=== PATIENT | female | born 1980 | race Caucasian/White ===

== ENCOUNTER 2019-07-14 07:58 | Observation (INO) | payer OTHER ==
--- NOTE | 2019-07-14 09:18 | ED ---
General Adult HPI - General Chief complaint: Chest Pain Stated complaint: chest pain/SOB Time Seen by Provider: 07/14/19 08:12 Source: patient Mode of arrival: ambulatory Limitations: no limitations - History of Present Illness Initial comments: Dictation was produced using [employer] dictation software. please excuse any grammatical, word or spelling errors. Chief Complaint: Patient is a 38-year-old female presents with chief complaint o f chest discomfort History of Present Illness: 38-year-old female she has past medical history dysl ipidemia and hypertension. She states that she had some chest sensation that radiated up to her bilateral jaws. Patient has a strong family history of cardiac disease. She reports that her father of a heart attack and mother was diagnosed with congestive heart failure. Patient states she's been having intermittent episodes on her way to work. He patient denies any previous cardiac history. She denies any shortness of breath. Patient denies any radiation of symptoms to her shoulders, back or extremity. She does feel some slight associated nausea. She refuses to describe the sensation as a pain started describe it as a strange substernal sensation. Denies any lower extremity symptoms. No numbness or paresthesias to the arms or legs. The ROS documented in this emergency department record has been reviewed and confirmed by me. Those systems with pertinent positive or negative responses have been documented in the HPI. All other systems are other negative and/or noncontributory. PHYSICAL EXAM: General Impression: Alert and oriented x3, not in acute distress HEENT: Normocephalic atraumatic, extra-ocular movements intact, pupils equal and reactive to light bilaterally, mucous membranes moist. Cardiovascular: Heart regular rate and rhythm, S1&S2 audible, no murmurs, rubs or gallops Chest: Lungs clear to auscultation bilaterally, no rhonchi, no wheeze, no rales Abdomen: Bowel sounds present, abdomen soft, non-tender, non-distended, no organomegaly Musculoskeletal: Pulses present and equal in all extremities, no peripheral edema Motor: no focal deficits noted Neurological: CN II-XII grossly intact, no focal motor or sensory deficits noted Skin: Intact with no visualized rashes Psych: Normal affect and mood ED course: 38 y Old female chief complaint of chest discomfort. Vital signs upon arrival are within acceptable limits. Local presentation consistent with atypical chest pain typical features. EKG however shows T-wave inversions that are diffuse. Patient denies any shortness of breath. No concern for pulmonary embolus at this time given she's not tachycardic or hypoxic or complaining of any lower extremity symptoms.Chest x-ray is nonacute. Patient reevaluated at bedside found to be stable medical condition. She denies any chest symptoms at this time. Given the abnormal EKG and strong family history discussed with patient that I would recommend inpatient observation admission for serial troponins and cardiology consultation. Patient is agreeable understandable. She was given aspirin. Pending discussion with [facility] hospitalist group. EKG interpretation: Ventricular rate 81, normal sinus rhythm,. Interval 170, QRS 86, QTC 425. Diffuse mild ST depressions in precordial leads and lead 3. No ST segment elevations. - Related Data Home Medications Medication Instructions Recorded Confirmed Albuterol Inhaler [Ventolin Hfa 1 - 2 puff INHALATION RT-Q6H PRN 07/14/1907/14 Inhaler] Biotin 10,000 mcg PO DAILY 07/14/19 07/14/19 Calcium Carbonate [Calcium] 600 mg PO DAILY 07/14/19 07/14/19 Cetirizine HCl [Zyrtec] 10 mg PO DAILY 07/14/19 07/14/19 Cholecalciferol [Vitamin D3 (25 1,000 unit PO DAILY 07/14/19 07/14/19 Mcg = 1000 Iu)] Gemfibrozil [Lopid] 600 mg PO AC-BID 07/14/19 07/14/19 Metoprolol Succinate (ER) [Toprol 100 mg PO DAILY 07/14/19 07/14/19 Xl] Omeprazole Magnesium [PriLOSEC OTC] 20 mg PO DAILY 07/14/19 07/14/19 Jpb-Zvxh-Mvlzd Acid 2 cap PO DAILY 07/14/19 07/14/19 [-U Capsule (formulary)] Triamterene-Hctz 37.5-25Mg 1 cap PO DAILY 07/14/19 07/14/19 [Dyazide 37.5-25 Capsule] Valerian Root 450 mg PO 5XD PRN 07/14/19 07/14/19 buPROPion XL [Wellbutrin Xl] 150 mg PO DAILY 07/14/19 07/14/19 Allergies Allergy/AdvReac Type Severity Reaction Status Date / Time amoxicillin AdvReac Nausea & Verified 07/14/19 10:13 Vomiting ciprofloxacin [From Cipro] AdvReac Nausea & Verified 07/14/19 10:13 Vomiting erythromycin base AdvReac Nausea & Verified 07/14/19 10:13 Vomiting Latex, Natural Rubber AdvReac Rapid Verified 07/14/19 10:13 Heart Rate lisinopril AdvReac Confusion Verified 07/14/19 10:13 Penicillins AdvReac Nausea & Verified 07/14/19 10:13 Vomiting Review of Systems ROS Statement: Those systems with pertinent positive or pertinent negative responses have been documented in the HPI. ROS Other: All systems not noted in ROS Statement are negative. Past Medical History Past Medical History: Hyperlipidemia, Hypertension Additional Past Medical History / Comment(s): anxiety History of Any Multi-Drug Resistant Organisms: None Reported Past Surgical History: Orthopedic Surgery Additional Past Surgical History / Comment(s): uterine ablation d & c plantar fascia surg Past Psychological History: Anxiety Smoking Status: Never smoker Past Alcohol Use History: Occasional Past Drug Use History: None Reported General Exam Limitations: no limitations Course Vital Signs 07/14/19 07/14/19 07/14/19 08:01 08:20 09:05 Temperature 98.2 F Pulse Rate 83 76 Pulse Rate [ 82 Radio Equipment Repairer ] Respiratory 16 16 Rate Blood Pressure 145/84 129/72 O2 Sat by Pulse 97 97 Oximetry 07/14/19 07/14/19 12:14 12:18 Temperature Pulse Rate 73 77 Pulse Rate [ Radio Equipment Repairer ] Respiratory 18 18 Rate Blood Pressure 129/81 142/92 O2 Sat by Pulse 96 96 Oximetry Medical Decision Making - Lab Data Result diagrams: 07/14/19 10:06 07/14/19 10:06 Lab Results 07/14/19 07/14/19 07/14/19 Range/Units 08:24 10:06 10:06 WBC 8.9 (3.8-10.6) k/uL RBC 5.45 H (3.80-5.40) m/uL Hgb 13.7 (11.4-16.0) gm/dL Hct 42.3 (34.0-46.0) % MCV 77.6 L (80.0-100.0) fL MCH 25.1 (25.0-35.0) pg MCHC 32.3 (31.0-37.0) g/dL RDW 14.4 (11.5-15.5) % Plt Count 384 (150-450) k/uL Neutrophils % 65 % Lymphocytes % 28 % Monocytes % 4 % Eosinophils % 1 % Basophils % 0 % Neutrophils # 5.8 (1.3-7.7) k/uL Lymphocytes # 2.5 (1.0-4.8) k/uL Monocytes # 0.4 (0-1.0) k/uL Eosinophils # 0.1 (0-0.7) k/uL Basophils # 0.0 (0-0.2) k/uL PT (9.0-12.0) sec INR (<1.2) APTT (22.0-30.0) sec Sodium 137 (137-145) mmol/L Potassium 3.9 (3.5-5.1) mmol/L Chloride 102 (98-107) mmol/L Carbon Dioxide 23 (22-30) mmol/L Anion Gap 12 mmol/L BUN 13 (7-17) mg/dL Creatinine 0.64 (0.52-1.04) mg/dL Est GFR (CKD-EPI)AfAm >90 (>60 ml/min/1.73 sqM) Est GFR (CKD-EPI)NonAf >90 (>60 ml/min/1.73 sqM) Glucose 79 (74-99) mg/dL Calcium 9.5 (8.4-10.2) mg/dL Magnesium 2.0 (1.6-2.3) mg/dL Total Bilirubin 0.3 (0.2-1.3) mg/dL AST 30 (14-36) U/L ALT 19 (4-34) U/L Alkaline Phosphatase 93 (38-126) U/L Troponin I (0.000-0.034) ng/mL Total Protein 7.1 (6.3-8.2) g/dL Albumin 3.9 (3.5-5.0) g/dL Urine HCG, Qual Not Detected (Not Detectd) 07/14/19 07/14/19 Range/Units 10:06 10:06 WBC (3.8-10.6) k/uL RBC (3.80-5.40) m/uL Hgb (11.4-16.0) gm/dL Hct (34.0-46.0) % MCV (80.0-100.0) fL MCH (25.0-35.0) pg MCHC (31.0-37.0) g/dL RDW (11.5-15.5) % Plt Count (150-450) k/uL Neutrophils % % Lymphocytes % % Monocytes % % Eosinophils % % Basophils % % Neutrophils # (1.3-7.7) k/uL Lymphocytes # (1.0-4.8) k/uL Monocytes # (0-1.0) k/uL Eosinophils # (0-0.7) k/uL Basophils # (0-0.2) k/uL PT 9.6 (9.0-12.0) sec INR 0.9 (<1.2) APTT 24.7 (22.0-30.0) sec Sodium (137-145) mmol/L Potassium (3.5-5.1) mmol/L Chloride (98-107) mmol/L Carbon Dioxide (22-30) mmol/L Anion Gap mmol/L BUN (7-17) mg/dL Creatinine (0.52-1.04) mg/dL Est GFR (CKD-EPI)AfAm (>60 ml/min/1.73 sqM) Est GFR (CKD-EPI)NonAf (>60 ml/min/1.73 sqM) Glucose (74-99) mg/dL Calcium (8.4-10.2) mg/dL Magnesium (1.6-2.3) mg/dL Total Bilirubin (0.2-1.3) mg/dL AST (14-36) U/L ALT (4-34) U/L Alkaline Phosphatase (38-126) U/L Troponin I <0.012 (0.000-0.034) ng/mL Total Protein (6.3-8.2) g/dL Albumin (3.5-5.0) g/dL Urine HCG, Qual (Not Detectd) Disposition Clinical Impression: Chest pain Disposition: ADMITTED IP TO THIS [facility] Condition: Fair Referrals: Lamberto Peterson MD [Primary Care Provider] - 1-2 days Decision Time: 12:25
--- NOTE | 2019-07-14 09:54 | XR ---
EXAMINATION TYPE: XR chest 2V DATE OF EXAM: 07/14/2019 COMPARISON: NONE HISTORY: Chest pressure and shortness of breath TECHNIQUE: Frontal and lateral views of the chest are obtained. FINDINGS: There is no focal air space opacity, pleural effusion, or pneumothorax seen. Central pulmo nary vascular prominence is seen. The cardiac silhouette size is upper limits of normal. The osseou s structures are intact. Mild multilevel degenerative change of the spine. IMPRESSION: Central pulmonary vascular prominence could relate to early fluid overload. Cardiomedias tinal silhouette is upper limits normal size.
[2019-07-14 10:19] LABS: Basophils % (A) 0 %; Eosinophils # (A) 0.1 k/uL (0-0.7); Eosinophils % (A) 1 %; HCT 42.3 % (34.0-46.0); HGB 13.7 gm/dL (11.4-16.0); Lymphocytes # (A) 2.5 k/uL (1.0-4.8); Lymphocytes % (A) 28 %; MCH 25.1 pg (25.0-35.0); MCHC 32.3 g/dL (31.0-37.0); MCV 77.6 fL (80.0-100.0); Mean Platelet Volume 6.8; Monocytes # (A) 0.4 k/uL (0-1.0); Monocytes % (A) 4 %; Neutrophils # (A) 5.8 k/uL (1.3-7.7); Neutrophils % (A) 65 %; Platelet Count 384 k/uL (150-450); RBC 5.45 m/uL (3.80-5.40); RDW 14.4 % (11.5-15.5); WBC 8.9 k/uL (3.8-10.6)
[2019-07-14 10:36] LABS: INR 0.9 (<1.2); Partial Thromboplastin Time 24.7 sec (22.0-30.0); Prothrombin Time 9.6 sec (9.0-12.0)
[2019-07-14] MEDS ORDERED: ASPIRIN 81 MG PO STA (10:37)
[2019-07-14 10:38] LABS: ALT 19 U/L (4-34); AST 30 U/L (14-36); African American GFR (CKD) >90 (>60 ml/min/1.73 sqM); Albumin 3.9 g/dL (3.5-5.0); Alkaline Phosphatase 93 U/L (38-126); Anion Gap 12 mmol/L; Blood Urea Nitrogen 13 mg/dL (7-17); Calcium 9.5 mg/dL (8.4-10.2); Carbon Dioxide 23 mmol/L (22-30); Chloride 102 mmol/L (98-107); Glucose 79 mg/dL (74-99); Non-African American GFR(CKD) >90 (>60 ml/min/1.73 sqM); Potassium 3.9 mmol/L (3.5-5.1); Sodium 137 mmol/L (137-145); Total Bilirubin 0.3 mg/dL (0.2-1.3); Total Protein 7.1 g/dL (6.3-8.2)
[2019-07-14] MEDS ORDERED: NITROGLYCERIN SL TABS 0.4 MG TAB SUBLINGUAL PRN (12:22)
--- NOTE | 2019-07-14 13:11 | P.HPIM ---
History of Present Illness this is a pleasant 38 years old female with past medical history of hypertension, hyperlipidemia, anxiety presents because of chest pain or discomfort. Patient was driving to work today when she felt indigestion, the later on started having fatigue, felt drowsy with lightheadedness, failed some pain of the jaw and the some chest pain or discomfort that has disappeared now, with no associated dyspnea or nausea vomiting. She denies smoking alcohol or illicit tracts Her mother from heart failure and father from heart attack but she is not sure what H Ly problem started vitals stable, labs including CBC, BMP, liver enzymes, and heart are unremarkable. Chest x-ray: Central pulmonary vascular prominence could be r elated to fluid overload. Cardiomediastinal silhouette the is upper limits normal size by radiologist.EKG: Normal sinus rhythm at 81 bpm, no significant ST-T changes, T-wave inversion in V1-V3, QTC 425 Review of Systems CONSTITUTIONAL: No fever, no malaise, no fatigue. HEENT: No recent visual problems or hearing problems. Denied any sore throat. CARDIOVASCULAR: No orthopnea, PND, no palpitations, no syncope. PULMONARY: No shortness of breath, no cough, no hemoptysis. GASTROINTESTINAL: No diarrhea, no nausea, no vomiting, no abdominal pain. Normoactive bowel sounds. NEUROLOGICAL: No headaches, no weakness, no numbness. HEMATOLOGICAL: Denies any bleeding or petechiae. GENITOURINARY: Denies any burning micturition, frequency, or urgency. MUSCULOSKELETAL/RHEUMATOLOGICAL: Denies any joint pain, swelling, or any muscle pain. ENDOCRINE: Denies any polyuria or polydipsia. Past Medical History Past Medical History: Hyperlipidemia, Hypertension Additional Past Medical History / Comment(s): anxiety History of Any Multi-Drug Resistant Organisms: None Reported Past Surgical History: Orthopedic Surgery Additional Past Surgical History / Comment(s): uterine ablation d & c plantar fascia surg Past Psychological History: Anxiety Smoking Status: Never smoker Past Alcohol Use History: Occasional Past Drug Use History: None Reported Medications and Allergies Home Medications Medication Instructions Recorded Confirmed Type Albuterol Inhaler [Ventolin Hfa 1 - 2 puff INHALATION RT-Q6H PRN 07/14/19 07/14/19 History Inhaler] Biotin 10,000 mcg PO DAILY 07/14/19 07/14/19 History Calcium Carbonate [Calcium] 600 mg PO DAILY 07/14/19 07/14/19 History Cetirizine HCl [Zyrtec] 10 mg PO DAILY 07/14/19 07/14/19 History Cholecalciferol [Vitamin D3 (25 1,000 unit PO DAILY 07/14/19 07/14/19 History Mcg = 1000 Iu)] Gemfibrozil [Lopid] 600 mg PO AC-BID 07/14/19 07/14/19 History Metoprolol Succinate (ER) [Toprol 100 mg PO DAILY 07/14/19 07/14/19 History Xl] Omeprazole Magnesium [PriLOSEC OTC] 20 mg PO DAILY 07/14/19 07/14/19 History Yvo-Jtli-Ebeyl Acid 2 cap PO DAILY 07/14/19 07/14/19 History [-U Capsule (formulary)] Triamterene-Hctz 37.5-25Mg 1 cap PO DAILY 07/14/19 07/14/19 History [Dyazide 37.5-25 Capsule] Valerian Root 450 mg PO 5XD PRN 07/14/19 07/14/19 History buPROPion XL [Wellbutrin Xl] 150 mg PO DAILY 07/14/19 07/14/19 History Allergies Allergy/AdvReac Type Severity Reaction Status Date / Time amoxicillin AdvReac Nausea & Verified 07/14/19 10:13 Vomiting ciprofloxacin [From Cipro] AdvReac Nausea & Verified 07/14/19 10:13 Vomiting erythromycin base AdvReac Nausea & Verified 07/14/19 10:13 Vomiting Latex, Natural Rubber AdvReac Rapid Verified 07/14/19 10:13 Heart Rate lisinopril AdvReac Confusion Verified 07/14/19 10:13 Penicillins AdvReac Nausea & Verified 07/14/19 10:13 Vomiting Physical Exam Vitals: Vital Signs Temp Pulse Pulse Resp BP Pulse Ox 07/14/19 12:18 77 18 142/92 96 07/14/19 12:14 73 18 129/81 96 07/14/19 09:05 76 16 129/72 97 07/14/19 08:20 82 07/14/19 08:01 98.2 F 83 16 145/84 97 Intake and Output 07/13/19 07/14/19 07/14/19 22:59 06:59 14:59 Other: Weight 135.942 kg GENERAL: The patient is alert and oriented x3, not in any acute distress. Well developed, well nourished. HEENT: Pupils are round and equally reacting to light. EOMI. No scleral icterus. No conjunctival pallor. Normocephalic, atraumatic. No pharyngeal erythema. No thyromegaly. CARDIOVASCULAR: S1 and S2 present. No murmurs, rubs, or gallops. PULMONARY: Chest is clear to auscultation, no wheezing or crackles. ABDOMEN: Soft, nontender, nondistended, normoactive bowel sounds. No palpable organomegaly. MUSCULOSKELETAL: No joint swelling or deformity. EXTREMITIES: No cyanosis, clubbing, or pedal edema. NEUROLOGICAL: Gross neurological examination did not reveal any focal deficits. SKIN: No rashes. No petechiae Results CBC & Chem 7: 07/14/19 10:06 07/14/19 10:06 Labs: Abnormal Lab Results - Last 24 Hours (Table) 07/14/19 Range/Units 10:06 RBC 5.45 H (3.80-5.40) m/uL MCV 77.6 L (80.0-100.0) fL Assessment and Plan Assessment: chest pain, rule out cardiac causes Hypertension Hyperlipidemia Anxiety Plan: this is a pleasant 38 years old female who presents because of chest pain. Serial troponin, 8 KG, cardiology consult. Continue with aspirin. Labs and medication were reviewed.. Continue same treatment. Continue with symptomatic treatment. Resume home medication. Monitor lytes and vitals. DVT and GI prophylaxis. Further recommendations of the clinical course of the patient DVT prophylaxis: Subcutaneous heparin GI Prophylaxis: Pepcid PT/OT: Pending Prognosis is guarded
[2019-07-14] MEDS: buPROPion XL 150 MG TAB.ER.24H PO SCH (13:34)
[2019-07-14] MEDS: CALCIUM CARBONATE 500 MG CHEWABLE PO SCH (13:35)
[2019-07-14] MEDS: METOPROLOL SUCCINATE (ER) 100 MG TAB.ER.24H PO SCH (13:35)
[2019-07-14] MEDS: TRIAMTERENE-HCTZ 37.5-25MG 1 EACH CAP PO SCH (13:35)
[2019-07-14] MEDS: CHOLECALCIFEROL 1,000 UNIT TAB PO SCH (13:35)
[2019-07-14] MEDS: FENOFIBRATE 160 MG TAB PO SCH (13:35)
[2019-07-14] MEDS: HEPARIN SODIUM,PORCINE 5,000 UNIT/ML 1 ML VIAL SQ SCH (20:33)
[2019-07-14] MEDS: FAMOTIDINE 20 MG/2 ML VIAL IV SCH (20:33)
[2019-07-14] MEDS: ACETAMINOPHEN TAB 325 MG TAB PO PRN (21:12)
[2019-07-15 07:27] LABS: Cholesterol 171 mg/dL (<200); HDL Cholesterol 34 mg/dL (40-60); LDL Cholesterol,Calculated 100 mg/dL (0-99); Triglycerides 187 mg/dL (<150)
--- NOTE | 2019-07-15 08:09 | P.CRDCN ---
History of Present Illness Consult date: 07/15/19 Requesting physician: Simón Au Consult reason: chest pain Chief complaint: Chest pain History of present illness: This is a 38-year-old female with history of hypertension, hyperlipid emia, obesity, family history of premature coronary artery disease, she is a nonsmoker, nondiabetic. 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 According to the patient, she was experiencing some chest discomfort which she states felt like a heartburn sensation in the center of her chest, mild pressure. Subsequent to that, patient states that she had more pressure in the chest, and also felt somewhat dizzy and lightheaded, became short of breath, and had some discomfort in both of her jaws. For this reason she came to the hospital for further evaluation and treatment. Her EKG on presentation here showed a normal sinus rhythm with ST-T wave changes noted in the anterior leads. Subsequent EKG performed this morning showed a normal sinus rhythm with anterior ST-T wave changes. Her chest x-ray showed central pulmonary vascular prominence which could relate early fluid overload. Blood pressure on arrival here 145/80 with a heart rate in the 80s, 97% on room air. I pressure this morning 150/60 with a heart rate in the 80s, 99% on room air. White blood cell count 8.9, hemoglobin 13.7, platelet count 384. Sodium 137, potassium 3.9, BUN 13, creatinine 0.6, magnesium 2.0. Cholesterol 171, triglycerides 187, LDL 100, HDL 34. At the time of my examination this morning the patient is currently chest pain-free. The patient's home medications include albuterol inhaler, vitamin D, Dyazide, multivitamin, biotin, Wellbutrin, Toprol-XL, and Lopid. Past Medical History Past Medical History: Hyperlipidemia, Hypertension Additional Past Medical History / Comment(s): anxiety History of Any Multi-Drug Resistant Organisms: None Reported Past Surgical History: Orthopedic Surgery Additional Past Surgical History / Comment(s): uterine ablation d & c plantar fascia surg Past Anesthesia/Blood Transfusion Reactions: No Reported Reaction Past Psychological History: Anxiety Smoking Status: Never smoker Past Alcohol Use History: Occasional Past Drug Use History: None Reported - Past Family History Mother Family Medical History: Cancer, Congestive Heart Failure (CHF), Diabetes Mellitus, Myocardial Infarction ([place]), Renal Disease Additional Family Medical History / Comment(s): at 69 from lymphoma Father Family Medical History: Myocardial Infarction ([place]), Neurologic Disorder Additional Family Medical History / Comment(s): HX OF EPILEPSY, PT HAD SEIZURE FOLLOWED BY [place] IN EARLY 60'S Medications and Allergies Home Medications Medication Instructions Recorded Confirmed Type Albuterol Inhaler [Ventolin Hfa 1 - 2 puff INHALATION RT-Q6H PRN 07/14/19 07/14/19 History Inhaler] Biotin 10,000 mcg PO DAILY 07/14/19 07/14/19 History Calcium Carbonate [Calcium] 600 mg PO DAILY 07/14/19 07/14/19 History Cholecalciferol [Vitamin D3 (25 1,000 unit PO DAILY 07/14/19 07/14/19 History Mcg = 1000 Iu)] Gemfibrozil [Lopid] 600 mg PO AC-BID 07/14/19 07/14/19 History Metoprolol Succinate (ER) [Toprol 100 mg PO DAILY 07/14/19 07/14/19 History Xl] Omeprazole Magnesium [PriLOSEC OTC] 20 mg PO DAILY 07/14/19 07/14/19 History Zat-Aavu-Kthrh Acid 2 cap PO DAILY 07/14/19 07/14/19 History [-U Capsule (formulary)] Triamterene-Hctz 37.5-25Mg 1 cap PO DAILY 07/14/19 07/14/19 History [Dyazide 37.5-25 Capsule] Valerian Root 450 mg PO 5XD PRN 07/14/19 07/14/19 History buPROPion XL [Wellbutrin Xl] 150 mg PO DAILY 07/14/19 07/14/19 History Allergies Allergy/AdvReac Type Severity Reaction Status Date / Time amoxicillin AdvReac Nausea & Verified 07/14/19 10:13 Vomiting ciprofloxacin [From Cipro] AdvReac Nausea & Verified 07/14/19 10:13 Vomiting erythromycin base AdvReac Nausea & Verified 07/14/19 10:13 Vomiting Latex, Natural Rubber AdvReac Swelling Verified 07/14/19 13:20 lisinopril AdvReac Confusion Verified 07/14/19 10:13 Penicillins AdvReac Nausea & Verified 07/14/19 13:20 Vomiting Physical Exam Vitals: Vital Signs Temp Pulse Pulse Resp BP BP Pulse Ox 07/15/19 04:00 85 18 150/68 99 07/15/19 00:00 80 16 144/82 98 07/14/19 20:00 97.4 F L 80 18 134/87 96 07/14/19 15:10 97.9 F 67 18 167/96 99 07/14/19 13:05 97.8 F 73 18 138/87 99 07/14/19 12:18 77 18 142/92 96 07/14/19 12:14 73 18 129/81 96 07/14/19 09:05 76 16 129/72 97 07/14/19 08:20 82 Intake and Output 07/14/19 07/15/19 07/15/19 22:59 06:59 14:59 Intake Total 240 Balance 240 Intake: Oral 240 Other: # Voids 1 2 Weight 133.5 kg PHYSICAL EXAMINATION: GENERAL: 38-year-old female in no acute distress at time of my examination HEENT: Head is atraumatic, normocephalic. Pupils equal, round. Sclera anicteric. Conjunctiva are clear. Mucous membranes of the mouth are moist. Neck is supple. There is no elevated jugular venous pressure. No carotid bruit is heard. HEART EXAMINATION: Heart S1, S2 normal. No murmur or gallop heard. CHEST EXAMINATION: Lungs are clear to auscultation and precussion. No chest wall tenderness is noted on palpation or with deep breathing. ABDOMEN: Soft, obese, nontender. Bowel sounds are heard. No organomegaly noted. EXTREMITIES: 2+ peripheral pulses with no evidence of peripheral edema and no calf tenderness noted. NEUROLOGIC patient is awake, alert and oriented 3 . . Results 07/14/19 10:06 07/14/19 10:06 Cardiac Enzymes 07/14/19 07/14/19 07/14/19 Range/Units 10:06 10:06 15:59 AST 30 (14-36) U/L Troponin I <0.012 <0.012 (0.000-0.034) ng/mL 07/14/19 Range/Units 22:12 AST (14-36) U/L Troponin I <0.012 (0.000-0.034) ng/mL Coagulation 07/14/19 Range/Units 10:06 PT 9.6 (9.0-12.0) sec APTT 24.7 (22.0-30.0) sec Lipids 07/15/19 Range/Units 06:42 Triglycerides 187 H (<150) mg/dL Cholesterol 171 (<200) mg/dL HDL Cholesterol 34 L (40-60) mg/dL CBC 07/14/19 Range/Units 10:06 WBC 8.9 (3.8-10.6) k/uL RBC 5.45 H (3.80-5.40) m/uL Hgb 13.7 (11.4-16.0) gm/dL Hct 42.3 (34.0-46.0) % Plt Count 384 (150-450) k/uL Comprehensive Metabolic Panel 07/14/19 Range/Units 10:06 Sodium 137 (137-145) mmol/L Potassium 3.9 (3.5-5.1) mmol/L Chloride 102 (98-107) mmol/L Carbon Dioxide 23 (22-30) mmol/L BUN 13 (7-17) mg/dL Creatinine 0.64 (0.52-1.04) mg/dL Glucose 79 (74-99) mg/dL Calcium 9.5 (8.4-10.2) mg/dL AST 30 (14-36) U/L ALT 19 (4-34) U/L Alkaline Phosphatase 93 (38-126) U/L Total Protein 7.1 (6.3-8.2) g/dL Albumin 3.9 (3.5-5.0) g/dL Current Medications Generic Name Dose Route Start Last Admin Trade Name Freq PRN Reason Stop Dose Admin Acetaminophen 650 mg 07/14/19 21:02 07/14/19 21:12 Tylenol Tab PO 650 mg Q6HR PRN Administration Fever and/ or Pain Aspirin 325 mg 07/15/19 09:00 07/14/19 13:34 Aspirin PO Not Given DAILY [facility] Bupropion HCl 150 mg 07/15/19 09:00 07/14/19 13:34 Wellbutrin Xl PO Not Given DAILY [facility] Calcium Carbonate/Glycine 500 mg 07/15/19 09:00 07/14/19 13:35 Tums PO Not Given DAILY [facility] Cholecalciferol 1,000 unit 07/15/19 09:00 07/14/19 13:35 Vitamin D3 (25 Mcg = 1000 Iu) PO Not Given DAILY [facility] Famotidine 20 mg 07/14/19 21:00 07/14/19 20:33 Pepcid IV 20 mg Q12HR SIMRAN Administration Fenofibrate 160 mg 07/15/19 09:00 07/14/19 13:35 Lofibra PO Not Given DAILY [facility] Heparin Sodium (Porcine) 5,000 unit 07/14/19 21:00 07/14/19 20:33 Heparin SQ 5,000 unit Q12HR SIMRAN Administration Metoprolol Succinate 100 mg 07/15/19 09:00 07/14/19 13:35 Toprol Xl PO Not Given DAILY [facility] Nitroglycerin 0.4 mg 07/14/19 12:22 Nitrostat SUBLINGUAL Q5M PRN Chest Pain Triamterene/HCTZ 1 each 07/15/19 09:00 07/14/19 13:35 Dyazide PO Not Given DAILY [facility]RAN Intake and Output 07/14/19 07/15/19 07/15/19 22:59 06:59 14:59 Intake Total 240 Balance 240 Intake: Oral 240 Other: # Voids 1 2 Weight 133.5 kg 07/14/19 10:06 07/14/19 10:06 EKG Interpretations (text) EKG shows normal sinus rhythm with anterior ST-T wave changes Assessment and Plan Plan: Assessment and plan #1 chest discomfort, suggestive of possible angina. Troponins are negative 3. EKG shows a normal sinus rhythm with anterior ST-T wave changes #2 hypertension #3 hyperlipidemia #4 obesity #5 family history of premature coronary artery disease Plan We will obtain an echocardiogram with Doppler study. We will also request a d- dimer be performed. Patient has been advised to undergo cardiac catheterization, the risks and benefits were explained to the patient in detail and she is willing to proceed. Further recommendations will be based on these findings and patient's clinical course. DNP note has been reviewed, I agree with a documented findings and plan of care. Patient was seen and examined.
--- NOTE | 2019-07-15 08:15 | P.PN ---
Subjective this is a pleasant 38 years old female with past medical history of hypertension, hyperlipidemia, anxiety presents because of chest pain or discomfo rt. Patient was driving to work today when she felt indigestion, the later on started having fatigue, felt drowsy with lightheadedness, failed some pain of the jaw and the some chest pain or discomfort that has disappeared now, with no associated dyspnea or nausea vomiting. She denies smoking alcohol or illicit tracts Her mother from heart failure and father from heart attack but she is not sure what H Ly problem started vitals stable, labs including CBC, BMP, liver enzymes, and heart are unremarkable. Chest x-ray: Central pulmonary vascular prominence could be related to fluid overload. Cardiomediastinal silhouette the is upper limits normal size by radiologist.EKG: Normal sinus rhythm at 81 bpm, no significant ST-T changes, T-wave inversion in V1-V3, QTC 425 07/15/2019 Patient is awake and alert, her symptoms are improved, she only had transient episodes of chest discomfort that lasted for minutes, currently no chest pain or pressure, no dyspnea or lightheadedness, no nausea vomiting, nausea with her bowel or urine. She thinks she is back to her usual state. She is hemodynamically stable and saturating 99% on room air. Because of concerns of abnormal chest x-ray from yesterday was brought to repeat one today. Cardiology are evaluated the patient currently patient continue on home medication of triamterene-hydrochlorothiazide and metoprolol 100 mg daily. Blood pressure is still slightly on the high side 150/68 with heart rate 85. ROS CONSTITUTIONAL: No fever, no malaise, no fatigue. HEENT: No recent visual problems or hearing problems. Denied any sore throat. CARDIOVASCULAR: No orthopnea, PND, no palpitations, no syncope. PULMONARY: No shortness of breath, no cough, no hemoptysis. GASTROINTESTINAL: No diarrhea, no nausea, no vomiting, no abdominal pain. Normoactive bowel sounds. NEUROLOGICAL: No headaches, no weakness, no numbness. HEMATOLOGICAL: Denies any bleeding or petechiae. GENITOURINARY: Denies any burning micturition, frequency, or urgency. MUSCULOSKELETAL/RHEUMATOLOGICAL: Denies any joint pain, swelling, or any muscle pain. ENDOCRINE: Denies any polyuria or polydipsia. Objective - Vital Signs Vital signs: Vital Signs Temp 97.4 F L 02/25/20 20:00 Pulse 85 07/15/19 04:00 Resp 18 07/15/19 04:00 BP 150/68 07/15/19 04:00 Pulse Ox 99 07/15/19 04:00 Intake & Output 07/14/19 07/15/19 07/15/19 18:59 06:59 18:59 Intake Total 240 Balance 240 Weight 133.5 kg 133.5 kg Intake: Oral 240 Other: # Voids 1 2 - Exam GENERAL: The patient is alert and oriented x3, not in any acute distress. Well developed, well nourished. HEENT: Pupils are round and equally reacting to light. EOMI. No scleral icterus. No conjunctival pallor. Normocephalic, atraumatic. No pharyngeal erythema. No thyromegaly. CARDIOVASCULAR: S1 and S2 present. No murmurs, rubs, or gallops. PULMONARY: Chest is clear to auscultation, no wheezing or crackles. ABDOMEN: Soft, nontender, nondistended, normoactive bowel sounds. No palpable organomegaly. MUSCULOSKELETAL: No joint swelling or deformity. EXTREMITIES: No cyanosis, clubbing, or pedal edema. NEUROLOGICAL: Gross neurological examination did not reveal any focal deficits. SKIN: No rashes. No petechiae - Labs CBC & Chem 7: 07/14/19 10:06 07/14/19 10:06 Labs: Abnormal Lab Results - Last 24 Hours (Table) 07/14/19 07/15/19 Range/Units 10:06 06:42 RBC 5.45 H (3.80-5.40) m/uL MCV 77.6 L (80.0-100.0) fL Triglycerides 187 H (<150) mg/dL LDL Cholesterol, Calc 100 H (0-99) mg/dL HDL Cholesterol 34 L (40-60) mg/dL Assessment and Plan Assessment: chest pain, rule out cardiac causes Hypertension Hyperlipidemia Anxiety Plan: this is a pleasant 38 years old female who presents because of chest pain. Serial troponin, 8 KG, cardiology consult. Continue with aspirin. Labs and medication were reviewed.. Continue same treatment. Continue with symptomatic treatment. Resume home medication. Monitor lytes and vitals. DVT and GI prophylaxis. Further recommendations of the clinical course of the patient DVT prophylaxis: Subcutaneous heparin GI Prophylaxis: Pepcid PT/OT: Pending Prognosis is guarded
--- NOTE | 2019-07-15 08:32 | XR ---
EXAMINATION TYPE: XR chest 2V DATE OF EXAM: 07/15/2019 COMPARISON: NONE HISTORY: Chest pain TECHNIQUE: Frontal and lateral views of the chest are obtained. FINDINGS: There is no focal air space opacity. No evidence for pneumothorax. No pleural effusion. The cardiac silhouette size is within normal limits. The osseous structures are grossly intact. IMPRESSION: 1. No acute cardiopulmonary process.
[2019-07-15] MEDS: HEPARIN SODIUM,PORCINE 5,000 UNIT/ML 1 ML VIAL SQ SCH ×2 (08:39→20:23)
[2019-07-15] MEDS ORDERED: ALPRAZolam 0.5 MG TAB PO PRN (08:42)
[2019-07-15] MEDS ORDERED: ATORVASTATIN 80 MG TAB PO STA (08:42)
[2019-07-15] MEDS ORDERED: ALPRAZolam 0.25 MG TAB PO PRN (08:42)
[2019-07-15] MEDS ORDERED: ASPIRIN 325 MG TAB PO STA (08:42)
[2019-07-15] MEDS ORDERED: SODIUM CHLORIDE 0.9% 1,000 ML in EMPTY BAG 1 BAG IV ONE (08:42)
[2019-07-15] MEDS ORDERED: NITROGLYCERIN SL TABS 0.4 MG TAB SUBLINGUAL PRN (08:42)
[2019-07-15] MEDS: FAMOTIDINE 20 MG/2 ML VIAL IV SCH ×2 (08:50→20:23)
[2019-07-15] MEDS: CALCIUM CARBONATE 500 MG CHEWABLE PO SCH (08:52)
[2019-07-15] MEDS: FENOFIBRATE 160 MG TAB PO SCH (08:52)
[2019-07-15] MEDS: METOPROLOL SUCCINATE (ER) 100 MG TAB.ER.24H PO SCH (08:52)
[2019-07-15] MEDS: CHOLECALCIFEROL 1,000 UNIT TAB PO SCH (08:52)
[2019-07-15] MEDS: ASPIRIN 81 MG PO SCH (08:53)
[2019-07-15] MEDS ORDERED: ASPIRIN 325 MG TAB PO SCH (09:00)
--- NOTE | 2019-07-15 10:00 | ECHOF ---
Referral Reason:chest pain MEASUREMENTS -------- HEIGHT: 170.2 cm WEIGHT: 133.4 kg BP: 150/68 RVIDd: 2.9 cm (< 3.3) IVSd: 1.1 cm (0.6 - 1.1) LVIDd: 4.9 cm (3.9 - 5.3) LVPWd: 1.4 cm (0.6 - 1.1) IVSs: 1.6 cm LVIDs: 2.7 cm LVPWs: 1.9 cm LAESV Index (A-L): 22.46 ml/m Ao Diam: 2.9 cm (2.0 - 3.7) AV Cusp: 2.0 cm (1.5 - 2.6) LA Diam: 3.9 cm (2.7 - 3.8) MV EXCURSION: 22.486 mm (> 18.000) MV EF SLOPE: 62 mm/s (70 - 150) EPSS: 0.3 cm MV E Marlo: 0.72 m/s MV DecT: 213 ms MV A Marlo: 0.70 m/s MV E/A Ratio: 1.04 RAP: 5.00 mmHg RVSP: 32.93 mmHg FINDINGS -------- Sinus rhythm. This was a technically good study. The left ventricular size is normal. There is mild concentric left ventricular hypertrophy. Overa ll left ventricular systolic function is normal with, an EF between 60 - 65 %. The diastolic fillin g pattern is normal for the age of the patient 10.39. The right ventricle is normal in size. Normal LA size by volume 22+/-6 ml/m2. The right atrial size is normal. Interatrial and interventricular septum intact. The aortic valve is trileaflet and appears structurally normal. There is no evidence of aortic regu rgitation. There is no evidence of aortic stenosis. There is trace mitral regurgitation. Trace tricuspid regurgitation present. There is no evidence of pulmonary hypertension. The right ventricular systolic pressure, as measured by Doppler, is 32.93mmHg. The pulmonic valve is normal. The aortic root size is normal. Normal inferior vena cava with normal inspiratory collapse consistent with estimated right atrial pre ssure of 5 mmHg. There is no pericardial effusion. CONCLUSIONS -------- 1. Sinus rhythm. 2. This was a technically good study. 3. The left ventricular size is normal. 4. There is mild concentric left ventricular hypertrophy. 5. Overall left ventricular systolic function is normal with, an EF between 60 - 65 %. 6. The diastolic filling pattern is normal for the age of the patient 10.39 7. The right ventricle is normal in size. 8. Normal LA size by volume 22+/-6 ml/m2. 9. The right atrial size is normal. 10. Interatrial and interventricular septum intact. 11. The aortic valve is trileaflet and appears structurally normal. 12. There is no evidence of aortic regurgitation. 13. There is no evidence of aortic stenosis. 14. There is trace mitral regurgitation. 15. Trace tricuspid regurgitation present. 16. There is no evidence of pulmonary hypertension. 17. The right ventricular systolic pressure, as measured by Doppler, is 32.93mmHg. 18. The pulmonic valve is normal. 19. The aortic root size is normal. 20. Normal inferior vena cava with normal inspiratory collapse consistent with estimated right atrial pressure of 5 mmHg. 21. There is no pericardial effusion. DATA PROCESSING SYSTEMS CONSULTANT: Caterina Eng RDCS
[2019-07-15] MEDS ORDERED: VERAPAMIL 2.5 MG/ML 2 ML AMP ONE (16:20)
[2019-07-15] MEDS ORDERED: LIDOCAINE 1% INJ 10MG/ML (20 ML MDV) ONE (16:20)
[2019-07-15] MEDS ORDERED: LIDOCAINE 1% INJ 10MG/ML (20 ML MDV) SQ ONE (16:45)
[2019-07-15] MEDS ORDERED: IV FLUID CONTINUATION 800 ML IV ONE (16:45)
[2019-07-15] MEDS ORDERED: MIDAZOLAM 2 MG/2 ML VIAL IV ONE (16:45)
[2019-07-15] MEDS ORDERED: HYDROmorphone 1 MG/ML 1 ML SYRINGE ONE (16:46)
[2019-07-15] MEDS ORDERED: HYDROmorphone 1 MG/ML 1 ML SYRINGE IVP ONE (16:47)
[2019-07-15] MEDS: VERAPAMIL SYRINGE (5 MG/10 ML) INTRAARTER ONE ×2 (16:48→16:55)
[2019-07-15] MEDS ORDERED: IOPAMIDOL-370 125ML BTL INJ ONE (16:54)
[2019-07-15] MEDS ORDERED: RX INFO: IV CONTRAST WAS GIVEN 1 EACH MISC MISCELLANE PRN ×2 (17:12→17:13)
[2019-07-15] MEDS ORDERED: SODIUM CHLORIDE 0.9% 1,000 ML IV SCH ×2 (17:15)
--- NOTE | 2019-07-15 17:49 | CC ---
CARDIAC CATHETERIZATION REPORT DATE OF PROCEDURE: 07/15/2019 PERFORMING PHYSICIAN: Robles Gardner M.D. PROCEDURES PERFORMED: 1. Selective right and left coronary angiogram. 2. Left heart catheterization. INDICATION: This is a 38-year-old female patient with hypertension, dyslipidemia, obesity and significant family history of coronary artery disease who presented to the hospital with classical anginal symptoms of chest discomfort. Because of that, a heart catheterization was advised. APPROACH: Right radial artery. COMPLICATIONS: None. LEVEL OF SEDATION: Moderate, with sedation length of 12 minutes. PROCEDURE DESCRIPTION: After obtaining informed consent, the patient was brought to the cardiac orthodontic lab technician. The right radial artery was cannulated using micropuncture technique. The micropuncture wire passed easily. Then I placed a 6-[place] sheath at the right radial artery. After that I gave the patient 2 mg of verapamil IA and 10,000 units of heparin IV. Selective right and left coronary angiogram was performed using JR4 and JL3.5 catheters. Left heart catheterization was performed using a 6-[place] pigtail catheter. The procedure was completed without any complication. SELECTIVE CORONARY ANGIOGRAM: 1. The right coronary artery is a large-caliber vessel and it is a dominant vessel. The RCA appeared to be angiographically normal. Distally it bifurcates into PDA and PLV branches; both appeared to be angiographically normal. 2. The left main is angiographically normal. It bifurcates into LCX and LAD. 3. The LCX is a large-caliber vessel. It is a nondominant vessel. The LCX is angiographically normal. It gives rise to multiple OM branches, and all appeared to be angiographically normal. 4. The LAD. The proximal LAD appeared to be angiographically normal. In the mid portion it gives rise to a diagonal branch which seems to be angiographically normal. HEMODYNAMICS: The LVEDP was 10 to 12 mmHg without significant gradient across the aortic valve. CONCLUSION: 1. Normal coronary angiogram. 2. Normal left ventricular end-diastolic pressure. POST-PROCEDURE MANAGEMENT: 1. Medical treatment. 2. Follow up with the patient. MMODL / IJN: [id number] /
[2019-07-15] MEDS: ACETAMINOPHEN TAB 325 MG TAB PO PRN (20:23)
[2019-07-16 08:28] VITALS: RESP 20
[2019-07-16] MEDS: buPROPion XL 150 MG TAB.ER.24H PO SCH (08:33)
[2019-07-16] MEDS: METOPROLOL SUCCINATE (ER) 100 MG TAB.ER.24H PO SCH (08:33)
[2019-07-16] MEDS: ASPIRIN 81 MG PO SCH (08:33)
[2019-07-16] MEDS: FENOFIBRATE 160 MG TAB PO SCH (08:33)
[2019-07-16] MEDS: CALCIUM CARBONATE 500 MG CHEWABLE PO SCH (08:33)
[2019-07-16] MEDS: CHOLECALCIFEROL 1,000 UNIT TAB PO SCH (08:33)
[2019-07-16] MEDS: HEPARIN SODIUM,PORCINE 5,000 UNIT/ML 1 ML VIAL SQ SCH (08:35)
[2019-07-16] MEDS: FAMOTIDINE 20 MG/2 ML VIAL IV SCH (08:35)
[2019-07-16 11:48] VITALS: BP 129/83; PULSE 77; TEMP 98.3
[2019-07-16] MEDS: TRIAMTERENE-HCTZ 37.5-25MG 1 EACH CAP PO SCH (12:00)
--- NOTE | 2019-07-16 14:02 | P.PN ---
Subjective Progress Note Date: 07/16/19 This is a 38-year-old female with history of hypertension, hyperlipidemia, obesity, family history of premature coronary artery disease, she is a nonsmoker, nondiabetic. 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 According to the patient, she was experiencing some chest discomfort which she states felt like a heartburn sensation in the center of her chest, mild pressure. Subsequent to that, patient states that she had more pressure in the chest, and also felt somewhat dizzy and lightheaded, became short of breath, and had some discomfort in both of her jaws. For this reason she came to the hospital for further evaluation and treatment. Her EKG on presentation here showed a normal sinus rhythm with ST-T wave changes noted in the anterior leads. Subsequent EKG performed this morning showed a normal sinus rhythm with anterior ST-T wave changes. Her chest x-ray showed central pulmonary vascular prominence which could relate early fluid overload. Blood pressure on arrival here 145/80 with a heart rate in the 80s, 97% on room air. I pressure this morning 150/60 with a heart rate in the 80s, 99% on room air. White blood cell count 8.9, hemoglobin 13.7, platelet count 384. Sodium 137, potassium 3.9, BUN 13, creatinine 0.6, magnesium 2.0. Cholesterol 171, triglycerides 187, LDL 100, HDL 34. At the time of my examination this morning the patient is currently chest pain-free. The patient's home medications include albuterol inhaler, vitamin D, Dyazide, multivitamin, biotin, Wellbutrin, Toprol-XL, and Lopid. 07/16/2019 Patient was taken to the cardiac catheterization lab yesterday where she was found to have normal coronary arteries. Echocardiogram with Doppler study was performed which also revealed normal coronary arteries. She was seen and examined this morning, denied any chest pain or difficulty in breathing. Objective - Vital Signs Vital signs: Vital Signs Temp 98.3 F 07/16/19 11:46 Pulse 77 07/16/19 11:46 Resp 20 07/16/19 11:46 BP 129/83 07/16/19 11:46 Pulse Ox 96 07/16/19 11:46 Intake & Output 07/15/19 07/16/19 07/16/19 18:59 06:59 18:59 Intake Total 370 765 240 Balance 370 765 240 Weight 133.4 kg Intake: IV 250 Intake, IV Titration 525 Amount Sodium Chloride 0.9% 1, 525 000 ml @ 75 mls/hr IV . [id number] [facility] Rx#:[id number] Oral 120 240 240 Other: Voiding Method Toilet # Voids 2 1 # Bowel Movements 1 - Exam PHYSICAL EXAMINATION: GENERAL: 38-year-old female in no acute distress at time of my examination HEENT: Head is atraumatic, normocephalic. Pupils equal, round. Sclera anicteric. Conjunctiva are clear. Mucous membranes of the mouth are moist. Neck is supple. There is no elevated jugular venous pressure. No carotid bruit is heard. HEART EXAMINATION: Heart S1, S2 normal. No murmur or gallop heard. CHEST EXAMINATION: Lungs are clear to auscultation and precussion. No chest wall tenderness is noted on palpation or with deep breathing. ABDOMEN: Soft, obese, nontender. Bowel sounds are heard. No organomegaly noted. EXTREMITIES: 2+ peripheral pulses with no evidence of peripheral edema and no calf tenderness noted. Right radial site clean and dry, good distal pulse. NEUROLOGIC patient is awake, alert and oriented 3 . . - Labs CBC & Chem 7: 07/14/19 10:06 07/14/19 10:06 Assessment and Plan Plan: Assessment and plan #1 chest discomfort, suggestive of possible angina. Troponins are negative 3. EKG shows a normal sinus rhythm with anterior ST-T wave changes #2 hypertension #3 hyperlipidemia #4 obesity #5 family history of premature coronary artery disease Plan Cardiac catheterization revealed normal coronary arteries, echo cardiac gram with Doppler study revealed a normal left ventricular systolic function. From cardiology's perspective, patient may be able to be discharged home today. We'll make a follow-up appointment in the office post discharge. DNP note has been reviewed, I agree with a documented findings and plan of care. Patient was seen and examined.
--- NOTE | 2019-07-16 21:45 | P.DS ---
Providers Date of admission: 07/14/19 12:22 Attending physician: Simón Au Consults: 07/14/19 12:22 Consult Physician Urgent Consulting Provider: Robinson Flores Consult Reason/Comments: chest pain Do you want consulting provider notified?: Yes Primary care physician: Lamberto Peterson Hospital Course: Diagnoses: chest pain, status post coronary angiogram: Normal. Resolved Hypertension Hyperlipidemia Anxiety Hospital course: this is a pleasant 38 years old female with past medical history of hypertension, hyperlipidemia, anxiety presents because of chest pain or discomfort. Patient was driving to work today when she felt indigestion, the later on started having fatigue, felt drowsy with lightheadedness, felt some pain of the jaw and the some chest pain or discomfort that has disappeared now, with no associated dyspnea or nausea vomiting. Patient was monitored in the hospital for more than 48 hours, her symptoms did not recur and patient is back to her baseline Patient has been evaluated by local operator and used to her risk factors and significant family history she underwent coronary angiogram which was unremarkable showing normal coronary arteries. Patient denies any other symptoms, no chest pain or dyspnea. No change in urine or bowel habits. No abdominal pain. No nausea vomiting, she is tolerating diet well. No fever Patient was cleared for discharge by local operator Problems and management plan were discussed with the patient and he verbalized understanding and acceptance Patient was found stable and can be discharged home however he needs follow-up as an outpatient. Patient was instructed to follow up with PCP within one week and patient agrees, also patient was instructed to follow up with local operator in 1-2 weeks and she agrees. Patient's wants to make her own appointments Patient did not need any prescription upon discharge and she has her home medications. Gen: patient is a AAOx3, no distress CVS: S1-S2, RRR, no murmur Lungs: B/L CTA, no wheezing Abdomen: soft, no distention, no tenderness, positive bowel sounds Extremity: no leg edema or induration Time spent more than 35 minutes Patient Condition at Discharge: Fair Plan - Discharge Summary Discharge Rx Participant: Yes New Discharge Prescriptions: No Action Cholecalciferol [Vitamin D3 (25 Mcg = 1000 Iu)] 1,000 unit PO DAILY Triamterene-Hctz 37.5-25Mg [Dyazide 37.5-25 Capsule] 1 cap PO DAILY Shc-Nepx-[id number] Acid [-U Capsule (formulary)] 2 cap PO DAILY Omeprazole Magnesium [PriLOSEC OTC] 20 mg PO DAILY Calcium Carbonate [Calcium] 600 mg PO DAILY Biotin 10,000 mcg PO DAILY buPROPion XL [Wellbutrin Xl] 150 mg PO DAILY Metoprolol Succinate (ER) [Toprol Xl] 100 mg PO DAILY Gemfibrozil [Lopid] 600 mg PO AC-BID Valerian Root 450 mg PO 5XD PRN PRN Reason: Anxiety Albuterol Inhaler [Ventolin Hfa Inhaler] 1 - 2 puff INHALATION RT-Q6H PRN PRN Reason: Shortness Of Breath Discharge Medication List Albuterol Inhaler [Ventolin Hfa Inhaler] 1 - 2 puff INHALATION RT-Q6H PRN 07/14/19 [History] Biotin 10,000 mcg PO DAILY 07/14/19 [History] Calcium Carbonate [Calcium] 600 mg PO DAILY 07/14/19 [History] Cholecalciferol [Vitamin D3 (25 Mcg = 1000 Iu)] 1,000 unit PO DAILY 07/14/19 [History] Gemfibrozil [Lopid] 600 mg PO AC-BID 07/14/19 [History] Metoprolol Succinate (ER) [Toprol Xl] 100 mg PO DAILY 07/14/19 [History] Omeprazole Magnesium [PriLOSEC OTC] 20 mg PO DAILY 07/14/19 [History] Eqa-Cqei-[id number] Acid [-U Capsule (formulary)] 2 cap PO DAILY 07/14/19 [History] Triamterene-Hctz 37.5-25Mg [Dyazide 37.5-25 Capsule] 1 cap PO DAILY 07/14/19 [History] Valerian Root 450 mg PO 5XD PRN 07/14/19 [History] buPROPion XL [Wellbutrin Xl] 150 mg PO DAILY 07/14/19 [History] Follow up Appointment(s)/Referral(s): Lamberto Peterson MD [Primary Care Provider] - 1-2 days
== END 2019-07-16 14:42 | disposition home or self-care (01) ==
LOC: EC 07:58 → 3SCARD 12:22
PROVIDERS: ADMIT Hospitalist; ATTEND Hospitalist
DX: R07.89 Other chest pain (principal); I10 Essential (primary) hypertension; E78.5 Hyperlipidemia, unspecified; E66.9 Obesity, unspecified; F41.9 Anxiety disorder, unspecified; Z88.8 Allergy status to other drugs, medicaments and biological substances; Z88.1 Allergy status to other antibiotic agents; Z79.899 Other long term (current) drug therapy; Z91.040 Latex allergy status; Z82.49 Family history of ischemic heart disease and other diseases of the circulatory system; Z83.3 Family history of diabetes mellitus; Z82.0 Family history of epilepsy and other diseases of the nervous system; Z84.1 Family history of disorders of kidney and ureter; Z80.7 Family history of other malignant neoplasms of lymphoid, hematopoietic and related tissues
CPT/HCPCS: 96376; 96372; 96374; 99285; 36415; 93005; 93306; 93458; 85379; 80061; 80053; 83735; 84484; 85025; 85610; 85730; 81025; 71046 ×2; G0378 ×3; C1769; C1894; J2250; J1644 ×3; J2001; J1170; Q9967